=== PATIENT | male | born 1970 ===

== ENCOUNTER 2018-02-16 02:55 | Emergency (ER) | payer SELFPAY ==
[~2018-02-16] VITALS: Ht 177.8 cm; Wt 82.0 kg
[2018-02-16 02:56] VITALS: BP 160/97
== END 2018-02-16 03:37 | disposition left against medical advice (07) ==
LOC: ER 02:55
DX: Z00.8 Encounter for other general examination (principal); I10 Essential (primary) hypertension; Z53.21 Procedure and treatment not carried out due to patient leaving prior to being seen by health care provider